=== PATIENT | male | born 1970 | race Hispanic/Latino ===

== ENCOUNTER 2018-12-25 15:56 | Emergency (ER) | payer BC ==
[2018-12-25] MEDS ORDERED: Dexamethasone 10 MG/ML VIAL ONE (17:45)
== END 2018-12-25 18:05 | disposition home or self-care (01) ==
LOC: ERS 15:56
DX: L25.9 Unspecified contact dermatitis, unspecified cause (principal); F17.210 Nicotine dependence, cigarettes, uncomplicated; Z71.6 Tobacco abuse counseling
CPT/HCPCS: 96372; 99406; J1100

== ENCOUNTER 2019-09-21 12:30 | Emergency (ER) | payer BC ==
--- NOTE | 2019-09-21 14:22 | RAD ---
Exam: Chest one view HISTORY:Cough. Comparison: None FINDINGS: Cardiac silhouette: Normal Aorta: Unremarkable Pulmonary vessels: Normal Costophrenic angles: Clear LUNGS: No masses or consolidation. Pneumothorax: None Osseous abnormalities: None IMPRESSION: No acute cardiopulmonary process.
== END 2019-09-21 14:58 | disposition home or self-care (01) ==
LOC: ERS 12:30
DX: J20.9 Acute bronchitis, unspecified (principal); F17.210 Nicotine dependence, cigarettes, uncomplicated
CPT/HCPCS: 71045; 87804